=== PATIENT | female | born 1950 | race Caucasian/White ===

== ENCOUNTER 2021-05-06 16:08 | Outpatient (CLI) | payer MEDICARE | END 2021-05-06 16:09 | disposition home or self-care (01) | LOC: CSHCT 16:08 | PROVIDERS: ATTEND Family Medicine | DX: Z12.2 Encounter for screening for malignant neoplasm of respiratory organs (principal); Z87.891 Personal history of nicotine dependence; K44.9 Diaphragmatic hernia without obstruction or gangrene; Z98.890 Other specified postprocedural states | CPT/HCPCS: 71271 ==

== ENCOUNTER 2023-09-12 14:30 | Outpatient (CLI) | payer MEDICARE | END 2023-09-12 14:31 | disposition home or self-care (01) | LOC: CSHMAMMO 14:30 | PROVIDERS: ATTEND Nurse Practitioner | DX: Z13.820 Encounter for screening for osteoporosis (principal); M85.851 Other specified disorders of bone density and structure, right thigh | CPT/HCPCS: 77080 ==